=== PATIENT | female | born 1995 | race Caucasian/White ===

== ENCOUNTER 2021-01-01 21:55 | Emergency (ER) | payer OTHER ==
[~2021-01-01] VITALS: Ht 162.6 cm; Wt 59.0 kg
[2021-01-01] MEDS ORDERED: TDAP [DIPH/PERTUSSIS/TET] 0.5 ML VIAL IM ONE ×2 (22:10→22:30)
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
[2021-01-01] MEDS ORDERED: LIDOCAINE 1%-EPI 1:100,000 20 ML VIAL ONE (22:12)
--- NOTE | 2021-01-01 22:20 | NUR ---
LACERATIONS BEING CLEANED UP BY EMT.
[2021-01-01] MEDS ORDERED: ACETAMINOPHEN ES 500 MG TABLET PO ONE (22:30)
[2021-01-01] MEDS ORDERED: ACETAMINOPHEN ES 500 MG TABLET ONE (22:40)
[2021-01-01] MEDS ORDERED: IBUP-1955 PO (23:02)
[2021-01-01] MEDS ORDERED: BACI30OI9 TP (23:02)
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
[2021-01-01 23:15] VITALS: BP 121/80
== END 2021-01-01 23:17 ==
LOC: ER 21:55
DX: S61.412A Laceration without foreign body of left hand, initial encounter (principal); S61.411A Laceration without foreign body of right hand, initial encounter; S61.512A Laceration without foreign body of left wrist, initial encounter; S61.511A Laceration without foreign body of right wrist, initial encounter; W25.XXXA Contact with sharp glass, initial encounter; Y93.89 Activity, other specified; Y92.89 Other specified places as the place of occurrence of the external cause; Y99.8 Other external cause status
CPT/HCPCS: 12002; 73130 ×2; 90471; 90715; 99283; A6403; J3490

== ENCOUNTER 2021-01-08 09:36 | Emergency (ER) | payer MEDICAID, OTHER ==
[~2021-01-08] VITALS: Ht 162.6 cm; Wt 54.4 kg
[~2021-01-08 09:36] MED LIST: BACI30OI9 TP; IBUP-1955 PO
[2021-01-08 09:40] VITALS: BP 110/61
[2021-01-08] MEDS ORDERED: LIDOCAINE/PRILOCAINE (5GM) 5 GM TUBE TP ONE ×2 (09:50→10:00)
--- NOTE | 2021-01-08 10:21 | NUR ---
SUTURE REMOVED. STERI STRIPS APPLIED. DISCHARGED IN STABLE CONDITION.
== END 2021-01-08 10:23 | disposition home or self-care (01) ==
LOC: ER 09:36
DX: S61.512D Laceration without foreign body of left wrist, subsequent encounter (principal); S61.511D Laceration without foreign body of right wrist, subsequent encounter; W25.XXXD Contact with sharp glass, subsequent encounter